=== PATIENT | male | born 1950 | race Caucasian/White ===

== ENCOUNTER 2019-11-21 19:33 | Emergency (ER) | payer OTHER ==
[~2019-11-21] VITALS: Ht 167.6 cm; Wt 63.0 kg
[2019-11-21] MEDS ORDERED: ONDANSETRON HCL 4 MG/2 ML VIAL IVP ONE (20:15)
[2019-11-21] MEDS ORDERED: SODIUM CHLORIDE 0.9% 2,000 ML IV ONE (20:15)
[2019-11-21] MEDS ORDERED: METH40TA2 PO (21:24)
[2019-11-21] MEDS ORDERED: OXYC5SOL17 PO (21:24)
[2019-11-21] MEDS ORDERED: ATEN50TA PO (21:24)
[2019-11-21 23:20] VITALS: BP 111/60
== END 2019-11-22 01:46 | disposition home or self-care (01) ==
LOC: EMS 19:34
DX: R05 Cough (principal); R19.7 Diarrhea, unspecified; R06.02 Shortness of breath; I10 Essential (primary) hypertension
CPT/HCPCS: 71046; 96361; 96374; 99285; J2405; J7030